=== PATIENT | female | born 2000 | race Caucasian/White ===

== ENCOUNTER 2024-10-06 11:12 | Outpatient (OUT) | payer BC, SELFPAY ==
[2024-10-06 11:44] LABS: Basophils Absolute Auto 0.1 10^3/uL (0.0-0.1); Basophils Percent Auto 1.1 % (0.2-2.0); Eosinophils Absolute Auto 0.1 10^3/uL (0.0-0.7); Eosinophils Percent Auto 1.1 % (0.9-7.0); Hematocrit 38.4 % (36.0-48.0); Hemoglobin 12.9 g/dL (12.0-16.0); Immature Granulocytes Abs Auto 0.01 10^3/uL (0.00-0.03); Immature Granulocytes Pct Auto 0.2 % (0.0-0.5); Lymphocytes Absolute Auto 1.4 10^3/uL (1.2-3.8); Lymphocytes Percent Auto 21.9 % (20.5-60.0); Mean Corpuscular HGB Conc 33.6 g/dL (29.9-35.2); Mean Corpuscular Hemoglobin 31.9 pg (26.7-34.0); Mean Platelet Volume 10.1 fL (9.5-13.5); Monocytes Absolute Auto 0.6 10^3/uL (0.3-0.8); Monocytes Percent Auto 8.4 % (1.7-12.0); Neutrophils Absolute Auto 4.4 10^3/uL (1.4-6.5); Neutrophils Percent Auto 67.3 % (43.0-75.0); Platelet Count 296 10^3/uL (150-450); Red Blood Count 4.04 10^6/uL (4.20-5.40); Red Cell Distribution Width 11.9 % (11.0-15.0); White Blood Count 6.6 10^3/uL (4.0-11.0)
[2024-10-06 12:32] LABS: Alanine Aminotransferase 17 U/L (14-59); Albumin Globulin Ratio 1.2; Alkaline Phosphatase 67 U/L (46-116); Anion Gap 11.4; Aspartate Amino Transferase 16 U/L (15-37); Bilirubin Total 0.5 mg/dL (0.2-1.0); Carbon Dioxide 28.8 mmol/L (21.0-32.0); Chloride 104 mmol/L (98-107); Chol HDL Ratio 2.2; Cholesterol 166 mg/dL (<=200); Estimated GFR (African America >60 (>=60 mL/min/1.73m^2); Estimated GFR (Non-African Ame >60 (>=60 mL/min/1.73m^2); Free T3 2.62 pg/mL (2.18-3.98); Globulin 3.3 g/dL; Glucose 85 mg/dL (74-106); HDL Cholesterol 76 mg/dL (40-60); Potassium 4.2 mmol/L (3.5-5.1); Sodium 140 mmol/L (136-145); Total Protein 7.3 g/dL (6.4-8.2); Triglycerides 28 mg/dL (<=150); VLDL CHOLESTEROL 5.6 mg/dL
[2024-10-06 12:41] LABS: Estimated Average Glucose 100 mg/dL; Glycohemoglobin A1C 5.1 % (4.5-6.2)
[2024-10-07 04:07] LABS: Insulin 6.2 uIU/mL (2.6-24.9)
[2024-10-09 14:10] LABS: Thyroglobulin Antibody <1.0 IU/mL (0.0-0.9); Thyroid Peroxidase (TPO) Ab 12 IU/mL (0-34)
== END 2024-10-06 11:13 | disposition home or self-care (01) ==
PROVIDERS: PCP Family Medicine; Visit Provider Family Medicine
DX: Z00.00 Encounter for general adult medical examination without abnormal findings (principal)
CPT/HCPCS: 36415; 80053; 80061; 82306; 83036; 83525; 83540; 84436; 84443; 84481; 85025; 86376; 86800